=== PATIENT | female | born 1960 | race Caucasian/White ===

== ENCOUNTER 2019-09-14 13:55 | Emergency (ER) | payer SELFPAY | END 2019-09-14 14:18 | disposition home or self-care (01) | LOC: ERS 13:55 | DX: S90.511A Abrasion, right ankle, initial encounter (principal); F32.9 Major depressive disorder, single episode, unspecified; F98.8 Other specified behavioral and emotional disorders with onset usually occurring in childhood and adolescence; I10 Essential (primary) hypertension; X78.0XXA Intentional self-harm by sharp glass, initial encounter | CPT/HCPCS: 99284 ==